=== PATIENT | female | born 1960 | race American Indian/Alaskan Native ===

== ENCOUNTER 2019-09-01 14:29 | Emergency (ER) | payer OTHER ==
--- NOTE | 2019-09-01 14:45 | Emergency Department Report ---
Blank Doc - Documentation Documentation: 58-year-old female that presents with headaches for 3 days with no relief of m edications. Deneis any head trauma. This initial assessment/diagnostic orders/clinical plan/treatment(s) is/are subject to change based on patient's health status, clinical progression and re-assessment by fellow clinical providers in the ED. Further treatment and workup at subsequent clinical providers discretion. Patient/guardians urged not to elope from the ED as their condition may be serious if not clinically assessed and managed. Initial orders include: 1- Patient sent to [facility] for further evaluation and treatment 2- CT head
--- NOTE | 2019-09-01 17:25 | Cat Scan Report ---
CT head/brain wo con INDICATION / CLINICAL INFORMATION: 58 years Female; headache. TECHNIQUE: Routine CT head without contrast. All CT scans at this location are performed using CT dos e reduction for ALARA by means of automated exposure control. COMPARISON: CT scan of the brain from 12/06/2015 FINDINGS: BRAIN / INTRACRANIAL CONTENTS: No acute hemorrhage, mass effect, midline shift, hydrocephalus, or acu te, large territorial infarct. No chronic infarct or encephalomalacia. Mild cortical involution is se en. No significant white matter abnormality. CRANIOCERVICAL JUNCTION: No significant abnormality. ORBITS: No significant abnormality of visualized orbits. SINUSES / MASTOIDS: No significant abnormality of the visualized paranasal sinuses or mastoid air kisha ls. ADDITIONAL FINDINGS: None. IMPRESSION: I do not see an acute parenchymal lesion in the brain. Signer Name: Vane Zimmer MD Signed: 09/01/2019 5:21 PM Workstation Name: [id number]
--- NOTE | 2019-09-01 17:31 | Emergency Department Report ---
ED General Adult HPI - General Chief complaint: Headache Stated complaint: HEADACHE FOR 3 DAYS Time Seen by Provider: 09/01/19 14:42 Source: patient Mode of arrival: Ambulatory Limitations: No Limitations - History of Present Illness Initial comments: 58yo BF states that she has had a LING x 3 days. -: days(s) (3) Location: head Radiation: non-radiation Severity scale (0 -10): 10 Quality: aching Consistency: constant Improves with: none Worsens with: none Associated Symptoms: denies other symptoms Treatments Prior to Arrival: none - Related Data Home Medications Medication Instructions Recorded Confirmed Last Taken Gabapentin [Neurontin] 600 mg PO DAILY 12/06/15 12/06/15 Unknown amLODIPine [Norvasc] 10 mg PO DAILY 12/06/15 12/06/15 Unknown Previous Rx's Medication Instructions Recorded Last Taken Type Ibuprofen [Motrin] 600 mg PO Q8H PRN #30 tablet 12/07/15 Unknown Rx Sulfamethoxazole/Trimethoprim 1 each PO BID #6 tablet 12/07/15 Unknown Rx [Bactrim DS TAB] oxyCODONE /ACETAMINOPHEN [Percocet 1 tab PO Q6HR PRN #20 tablet 12/07/15 Unknown Rx 5/325] Allergies Allergy/AdvReac Type Severity Reaction Status Date / Time morphine Allergy Itching Verified 09/01/19 17:51 ED Review of Systems ROS: Stated complaint: HEADACHE FOR 3 DAYS Other details as noted in HPI Comment: All other systems reviewed and negative Neurological: as per HPI ED Past Medical Hx - Past Medical History Previous Medical History?: Yes Hx Hypertension: Yes Hx Seizures: Yes - Surgical History Past Surgical History?: Yes Additional Surgical History: left rotator cuff surgery. c-spine fusion - Social History Smoking Status: Former Smoker Substance Use Type: None - Medications Home Medications: Home Medications Medication Instructions Recorded Confirmed Last Taken Type Gabapentin [Neurontin] 600 mg PO DAILY 12/06/15 12/06/15 Unknown History amLODIPine [Norvasc] 10 mg PO DAILY 12/06/15 12/06/15 Unknown History Ibuprofen [Motrin] 600 mg PO Q8H PRN #30 tablet 12/07/15 Unknown Rx Sulfamethoxazole/Trimethoprim 1 each PO BID #6 tablet 12/07/15 Unknown Rx [Bactrim DS TAB] oxyCODONE /ACETAMINOPHEN [Percocet 1 tab PO Q6HR PRN #20 tablet 12/07/15 Unknown Rx 5/325] ED Physical Exam - General Limitations: No Limitations General appearance: alert, in no apparent distress - Head Head exam: Present: atraumatic, normocephalic, normal inspection - Eye Eye exam: Present: normal appearance, PERRL, EOMI Pupils: Present: normal accommodation, irregular - ENT ENT exam: Present: normal orophraynx - Neck Neck exam: Present: normal inspection, full ROM. Absent: tenderness - Respiratory Respiratory exam: Present: normal lung sounds bilaterally, respiratory distress. Absent: wheezes - Cardiovascular Cardiovascular Exam: Present: regular rate, normal rhythm, normal heart sounds - GI/Abdominal GI/Abdominal exam: Present: soft, normal bowel sounds. Absent: distended, tenderness - Rectal Rectal exam: Present: deferred - Extremities Exam Extremities exam: Present: normal inspection, full ROM. Absent: tenderness - Back Exam Back exam: Present: normal inspection, full ROM. Absent: tenderness - Neurological Exam Neurological exam: Present: alert, altered, oriented X3, CN II-XII intact, normal gait, reflexes normal. Absent: motor sensory deficit - Psychiatric Psychiatric exam: Present: normal affect, normal mood. Absent: depressed - Skin Skin exam: Present: warm, dry, intact ED Course Vital Signs 09/01/19 09/01/19 09/01/19 14:42 17:12 17:51 Temperature 97.9 F Pulse Rate 91 H 87 Respiratory 18 18 Rate Blood Pressure 165/122 Blood Pressure 160/114 [Right] O2 Sat by Pulse 99 Oximetry 09/01/19 09/01/19 18:35 18:47 Temperature Pulse Rate 91 H 91 H Respiratory 17 Rate Blood Pressure 141/109 Blood Pressure 141/109 [Right] O2 Sat by Pulse 98 Oximetry ED Medical Decision Making - Radiology Data [facility] [address] [place] [address] Cat Scan Report Signed Patient: HERMINIO BAKER MR#: [id number] 3 : 1960 Acct:[id number] Age/Sex: 58 / F ADM Date: 09/01/19 Loc: ED Attending Dr: Ordering Physician: PRECIOUS ROONEY NP Date of Service: 09/01/19 Procedure(s): CT head/brain wo con Accession Number(s): [id number] cc: PRECIOUS ROONEY NP CT head/brain wo con INDICATION / CLINICAL INFORMATION: 58 years Female; headache. TECHNIQUE: Routine CT head without contrast. All CT scans at this location are performed using CT dose reduction for ALARA by means of automated exposure control. COMPARISON: CT scan of the brain from 12/06/2015 FINDINGS: BRAIN / INTRACRANIAL CONTENTS: No acute hemorrhage, mass effect, midline shift, hydrocephalus, or acute, large territorial infarct. No chronic infarct or encephalomalacia. Mild cortical involution is seen. No significant white matter abnormality. CRANIOCERVICAL JUNCTION: No significant abnormality. ORBITS: No significant abnormality of visualized orbits. SINUSES / MASTOIDS: No significant abnormality of the visualized paranasal sinuses or mastoid air cells. ADDITIONAL FINDINGS: None. IMPRESSION: I do not see an acute parenchymal lesion in the brain. Signer Name: Vane Zimmer MD Signed: 09/01/2019 5:21 PM Workstation Name: [id number] Transcribed By: BS Dictated By: Vane Tamez MD Electronically Authenticated By: Vane Tamez MD Signed Date/Time: 09/01/191720 DD/ 16 TD/TT: - Medical Decision Making 58yo BF states that she has had a LING x 3 days. Head imaging revealed no abnormalities. She was given Toradol, Benadryl, Reglan and Clonidine. Pt was instructed to continue current BP prescription, take NSAIDs as needed for LING and f/u with PCP. Critical care attestation.: If time is entered above; I have spent that time in minutes in the direct care of this critically ill patient, excluding procedure time. ED Disposition Clinical Impression: Headache Condition: Stable Instructions: Acute Headache (ED) Additional Instructions: Pt was instructed to continue current BP prescription, take NSAIDs as needed for LING and f/u with PCP. Referrals: [facility] [Outside] - 3-5 Days Time of Disposition: 19:02
[2019-09-01] MEDS ORDERED: KETOROLAC 30 MG/1 ML INJ IM ONE (17:46)
[2019-09-01 18:37] VITALS: BP 141/109
[2019-09-01] MEDS ORDERED: METOCLOPRAMIDE 10 MG TAB PO ONE (18:41)
[2019-09-01] MEDS ORDERED: diphenhydrAMINE 25 MG CAP PO ONE (18:41)
[2019-09-01] MEDS ORDERED: cloNIDine 0.1 MG TAB PO ONE (18:41)
== END 2019-09-01 19:14 | disposition home or self-care (01) ==
LOC: ED 14:29
DX: R51 Headache (principal)
CPT/HCPCS: 70450; 96372; 99283; J1885